=== PATIENT | male | born 1965 | race American Indian/Alaskan Native ===

== ENCOUNTER 2021-06-18 08:28 | Emergency (ER) | payer BC, MEDICARE ==
[2021-06-18 09:28] LABS: Basophils % (Auto) 0.8 % (0.0-1.8); Eosinophils # (Auto) 0.1 K/mm3 (0.0-0.4); Eosinophils % (Auto) 2.7 % (0.0-4.3); Hematocrit 52.7 % (35.5-45.6); Hemoglobin 16.7 gm/dl (11.8-15.2); Lymphocytes # (Auto) 1.2 K/mm3 (1.2-5.4); Lymphocytes % (Auto) 21.5 % (13.4-35.0); Mean Corpuscular HGB Conc 32 % (32-34); Mean Corpuscular Volume 88 fl (84-94); Monocytes # (Auto) 0.4 K/mm3 (0.0-0.8); Platelet Count 232 K/mm3 (140-440); Red Blood Count 6.02 M/mm3 (3.65-5.03); Red Cell Distribution Width 16.7 % (13.2-15.2)
--- NOTE | 2021-06-18 09:35 | Emergency Department Report ---
HPI - General Chief Complaint: Extremity Problem,Nontraumatic Time Seen by Provider: 06/18/21 09:17 - HPI HPI: Room 2 The patient is a 56-year-old male present with a chief complaint of left foot ulcerations. Patient has had chronic discoloration of bilateral lower extremities but states approximate 1.5 weeks ago he noticed a scratch on the dorsum of his left foot. As time progressed it became an ulceration. Patient denies history of fever. Patient currently gives his pain a score 4/10. Patient states he has not yet seen his primary physician about the above complaint ED Past Medical Hx - Past Medical History Hx Hypertension: Yes Hx Diabetes: Yes - Surgical History Additional Surgical History: Neck surgery - Family History Family history: no significant - Social History Smoking Status: Current Every Day Smoker (1 pack/day) Substance Use Type: Alcohol (Almost daily), Marijuana - Medications Home Medications: Home Medications Medication Instructions Recorded Confirmed Last Taken Type Lisinopril [Zestril] 40 mg PO DAILY 10/14/13 11/06/13 11/05/13 History metFORMIN [Glucophage] 500 mg PO DAILY 10/14/13 11/06/13 11/05/13 History Ciprofloxacin HCl [Cipro] 500 mg PO Q12H #20 tab 10/15/13 11/06/13 11/05/13 Rx HYDROcodone/APAP 5-325 [[place] 1 - 2 each PO Q6HR PRN #14 tablet 06/18/21 Unknown Rx 5/325] cephALEXin [Keflex] 500 mg PO Q6HR #28 capsule 06/18/21 Unknown Rx ED Review of Systems ROS: Stated complaint: FOOT ULCERS Other details as noted in HPI Constitutional: denies: fever Eyes: denies: eye pain ENT: denies: throat pain Respiratory: no symptoms reported Cardiovascular: denies: chest pain Endocrine: no symptoms reported Gastrointestinal: denies: abdominal pain Genitourinary: denies: dysuria Musculoskeletal: myalgia Skin: lesions Neurological: denies: headache Physical Exam - Physical Exam Vital Signs: Vital Signs 06/18/21 08:37 Temperature 98.5 F Pulse Rate 97 H Respiratory 18 Rate Blood Pressure 140/84 O2 Sat by Pulse 95 Oximetry Physical Exam: GENERAL: The patient is well-developed well-nourished male lying on stretcher not appearing to be in acute distress. [] HEENT: Normocephalic. Atraumatic. Extraocular motions are intact. Patient has moist mucous membranes. NECK: Supple. Trachea midline CHEST/LUNGS: There is no respiratory distress noted. HEART/CARDIOVASCULAR: Regular. There is no tachycardia. SKIN: There is chronic appearing hyperpigmentation to the dorsum of both feet. Skin is dry and cracked and there is an ulceration to the dorsum of the left foot measuring approximately 3 cm in diameter with another oval shaped ulceration to the lateral aspect of the left foot approximately 5 cm in diameter. No active drainage appreciated. NEURO: The patient is awake, alert, and oriented. The patient is cooperative. The patient has normal speech. GCS 15 MUSCULOSKELETAL: T There is no evidence of acute injury. ED Course Vital Signs 06/18/21 08:37 Temperature 98.5 F Pulse Rate 97 H Respiratory 18 Rate Blood Pressure 140/84 O2 Sat by Pulse 95 Oximetry ED Medical Decision Making - Lab Data Result diagrams: 06/18/21 09:01 06/18/21 09:01 Laboratory Tests 06/18/21 06/18/21 06/18/21 09:01 09:01 09:01 WBC 5.5 RBC 6.02 H Hgb 16.7 H Hct 52.7 H MCV 88 MCH 28 MCHC 32 RDW 16.7 H Plt Count 232 Lymph % (Auto) 21.5 [place] % (Auto) 8.0 H Eos % (Auto) 2.7 Baso % (Auto) 0.8 Lymph # (Auto) 1.2 [place] # (Auto) 0.4 Eos # (Auto) 0.1 Baso # (Auto) 0.0 Seg Neutrophils % 67.0 Seg Neutrophils # 3.7 Sodium 136 L Potassium 4.5 Chloride 99.7 Carbon Dioxide 24 Anion Gap 17 BUN 9 Creatinine 0.9 Estimated GFR > 60 BUN/Creatinine Ratio 10 Glucose 167 H Lactic Acid 1.90 Calcium 9.3 Total Bilirubin 0.30 AST 22 ALT 37 Alkaline Phosphatase 72 Total Protein 7.5 Albumin 4.4 Albumin/Globulin Ratio 1.4 - Radiology Data Radiology results: report reviewed (Left foot x-ray), image reviewed (Left foot x-ray) interpreted by me: Left foot x-ray-no acute fractures, no foreign body seen [facility] [address] [place] [address] XRay Report Signed Patient: CASE SAHA MR#: [id number] : 01/1965 Acct:[id number] Age/Sex: 56 / M ADM Date: 06/18/21 Loc: ED Attending Dr: Ordering Physician: JOSE DICKEY MD Date of Service: 06/18/21 Procedure(s): XR foot 3+V LT Accession Number(s): [id number] cc: JOSE DICKEY MD Fluoro Time In Minutes: LEFT FOOT 3 VIEWS INDICATION / CLINICAL INFORMATION: Left foot ulcerations COMPARISON: None available. FINDINGS: BONES and JOINT(S): No acute fracture or subluxation. Mild arthritis is noted along the midfoot. No areas of cortical destruction are seen. SOFT TISSUES: No soft tissue defect is clearly seen. There is mild generalized edema with severe atherosclerosis. ADDITIONAL FINDINGS: None. IMPRESSION: Mild generalized edema of the left foot without a clearly visualized ulceration or evidence of osteomyelitis. Signer Name: Cosmo Mcleod MD Signed: 06/18/2021 10:12 AM Workstation Name: [email or web address] Transcribed By: [place] Dictated By: Cosmo Mcleod MD Electronically Authenticated By: Cosmo Mcloed MD Signed Date/Time: 06/18/21 1012 DD/ 1008 TD/TT: - Differential Diagnosis Foot ulceration Critical care attestation.: If time is entered above; I have spent that time in minutes in the direct care of this critically ill patient, excluding procedure time. ED Disposition Clinical Impression: Foot ulcer, left Disposition: 01 HOME / SELF CARE / HOMELESS Is pt being admited?: No Does the pt Need Aspirin: No Condition: Stable Additional Instructions: Return to the emergency department should you develop worsening symptoms, inability to tolerate food or liquids, high fever or any other concerns Prescriptions: cephALEXin [Keflex] 500 mg PO Q6HR #28 capsule HYDROcodone/APAP 5-325 [[place] 5/325] 1 - 2 each PO Q6HR PRN #14 tablet PRN Reason: Pain Referrals: [facility] [Outside] - 3-5 Days PRIMARY CARE, [Primary Care Provider] - [facility] Time of Disposition: 12:17
[2021-06-18] MEDS ORDERED: HYDROcodone/ACETAMINOPHEN 5-325 MG TAB PO ONE (09:41)
[2021-06-18 09:44] LABS: Alanine Aminotransferase 37 units/L (7-56); Albumin 4.4 g/dL (3.9-5); BUN/Creatinine Ratio 10; Blood Urea Nitrogen 9 mg/dL (9-20); Calcium 9.3 mg/dL (8.4-10.2); Hemolysis Index 7
--- NOTE | 2021-06-18 10:17 | XRay Report ---
LEFT FOOT 3 VIEWS INDICATION / CLINICAL INFORMATION: Left foot ulcerations COMPARISON: None available. FINDINGS: BONES and JOINT(S): No acute fracture or subluxation. Mild arthritis is noted along the midfoot. No a reas of cortical destruction are seen. SOFT TISSUES: No soft tissue defect is clearly seen. There is mild generalized edema with severe athe rosclerosis. ADDITIONAL FINDINGS: None. IMPRESSION: Mild generalized edema of the left foot without a clearly visualized ulceration or evidence of osteom yelitis. Signer Name: Cosmo Mcleod MD Signed: 06/18/2021 10:12 AM Workstation Name: [id number]
[2021-06-18] MEDS ORDERED: fentaNYL 100 MCG/2 ML INJ IM ONE (12:15)
[2021-06-18] MEDS ORDERED: WATER FOR INJ Sterile (PF) 10 ML ONE (12:37)
[2021-06-18 13:00] VITALS: BP 127/94
== END 2021-06-18 12:50 | disposition home or self-care (01) ==
LOC: ED 08:28
DX: E11.621 Type 2 diabetes mellitus with foot ulcer (principal); L97.529 Non-pressure chronic ulcer of other part of left foot with unspecified severity; I10 Essential (primary) hypertension; F17.200 Nicotine dependence, unspecified, uncomplicated; F12.90 Cannabis use, unspecified, uncomplicated; Z72.89 Other problems related to lifestyle; Z79.899 Other long term (current) drug therapy
CPT/HCPCS: 36415; 73630; 80053; 82140; 82962; 85025; 87040; 96372; 99284; J3010